=== PATIENT | male | born 2005 | race Caucasian/White ===

== ENCOUNTER 2025-05-25 01:12 | Emergency (ER) | payer SELFPAY ==
--- OUTSIDE RECORDS SUMMARY | 2024-11-05 04:30 | XMS_ITS ---
Author Organization [facility] Address [address] [place] [address] Care Team Providers Care Char Filter Tank Tender Name Role Phone Ronnie Licona Unavailable Unavailable REASON FOR VISIT 7:30 a ING Therapeutic Case Manager [place]P [place] Encounters Encounter Location Date Provider Diagnosis [facility] [address] [place] [address] 11/05/2024 Ronnie Licona Plan Of Treatment No Information Progress Notes * Narinder CUTLER CDOB: [birth year] (19 yo M)Acc No.[id number]:11/05/2024 Patient: Narinder SANTOS Provider: Nabeel Licona PA-C :2005 A ge:19 Y S ex:Male Date:11/05/2024 Address:[address] [place], [place] [id number] Subjective: * Chief Complaints: * 1 . 7:30 a ING Therapeutic Case Manager [place]. * Medical History: Objective: * Vitals: Assessment: Plan: * Treatment: * Billing Information: * Visit Code: * Procedure Codes: * Electronic signature of ESCOBAR Polanco on 05/25/2025 at 03:15 AM CDT Sign off status: Pending * Provider: Nabeel Licona PA-C Date: 11/05/2024 Generated for Nathen diaz/Colleen/Katie on: 0 05/25/2025 03:15 AM CDT
[2025-05-25 01:16] VITALS: BP 140/77; PULSE 81; RESP 18; TEMP 36.9; O2SAT 100
--- NOTE | 2025-05-25 03:12 | PC.NURSE ---
eye kit at bedside.
--- OUTSIDE RECORDS SUMMARY | 2025-05-25 03:15 | XMS_ITS | Clinical Summary ---
Author Organization [email or web address] Address [address] [place] [address] Care Team Providers Care Ferry Engineer Name Role Phone Yusef Benson MD Primary Care Provider [phone] Source Comments [email or web address],non-owned Affiliates and Associated Physician Practices is amultiple site organization consisting of ambulatory clinics and hospital sitesin [place], [place], [place] and [place]. This disclosure is being madepursuant to the Care Everywhere program and may not contain all information available regarding this patient. Last updated 18.[email or web address] Allergies No known active allergies Medications * Be aware that medications may not be up to date on this document. Alwaysverify current medications with the patient. Fluticasone Propionate, Inhal, (FLOVENT IN) Inhale by mouth. Active Albuterol (VENTOLIN IN) Inhale by mouth. Active Montelukast Sodium (SINGULAIR PO) Take by mouth. Active cefdinir (OMNICEF) 125 MG/5ML SUSR suspension Take 10 mL by mouth daily. 100 mL 0 05/21/2010 Active montelukast (SINGULAIR) 4 MG chew tablet Take 1 Tab by mouth every evening. 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 Gender Identity Not on file Sexual Orientation Not on file Last Filed Vital Signs Vital Sign Reading Time Taken Comments Blood Pressure 80/50 05/21/2010 10:43 AM CDT Pulse 66 05/21/2010 10:43 AM CDT Temperature 36.8 C (98.2 F) 05/21/2010 10:43 AM CDT Respiratory Rate 16 05/21/2010 10:4 3 AM CDT Oxygen Saturation - - Inhaled Oxygen Concentration - - Weight 17.7 kg (39 lb 0.3 oz) 0 10:43 AM CDT Height 108.8 cm (3' 6.84) 05/21/2010 1 0:43 AM CDT Hxfvum-dvx-Krtlrd Percentile 34.96% 10:43 AM CDT Growth Chart: CDC (Boys, 2-2 0 Years) Body Mass Index 14.95 05/21/2010 10:43 AM CDT Body Mass Index Percentile 33.27% 05/21 10:43 AM CDT Growth Chart: CDC (Boys, 2-2 0 Years) Plan of Treatment Health Maintenance Due Date Last Done Comments HIV SCREENING 2020 HPV VACCINE (1 - Male 3-dose series) 2020 MENINGOCOCCAL (Group B) VACC INE SHARED DECISION-MAKING (1 of 2 - Standard) 2021 HEPATITIS C SCREENING 05/24/2023 DTAP/TDAP/TD VACCINES (1 - Tdap) 2024 HEPATITIS B VACCINE (1 of 3 - 19+ 3-dose series) 2024 DEPRESSION SCREENING 08/29/2024 COVID-19 VACCINE (1 - 2023-2 5 season) 2025 INFLUENZA VACCINE (#1) 2025 ZOSTER VACCINE (1 of 2) 2055 HIB VACCINE Aged Out No longer eligi ble based on patient's age to complete this topic MENINGOCOCCAL GROUPS A/C/Y/W VACCINE Aged Out No longer eligible b ased on patient's age to complete this topic PNEUMOCOCCAL VACCINE Aged Out No long er eligible based on patient's age to complete this topic Care Teams Ferry Engineer Relationship Specialty Start Date End Date Yusef Besnon MD [address] [place] [address] PCP - General 10/09/09
--- OUTSIDE RECORDS SUMMARY | 2025-05-25 03:15 | XMS_ITS ---
Author Organization Unknown ENCOUNTERS Encounter Performer Location Date Diagnosis Diagnosis Status Emergency [facility] [address] [place] [id number] Pre Admit [facility] [address] [place] [address] [id number] *Note: Encounters from your own facility or health system may be excluded. Allergies, Adverse Reactions, Alerts Allergen Type Severity Identification Date Medications Name Date Quantity Days Supplied GPI Number
--- OUTSIDE RECORDS SUMMARY | 2025-05-25 03:16 | XMS_ITS | Patient Health Record ---
Author Organization [employer] [facility] Address [address] [place] [id number] Care Team Providers Care Boiler Shop Supervisor Name Role Phone Ronnie Licona Unavailable Unavailable Reason For Referral No Information Plan Of Treatment No Information Insurance Providers Payer Name Payer Address Payer Phone Subscriber Number Group Number Insured Name Patient Relationship to Insured Coverage Start Date Coverage End Date [facility] price Narinder Cutler Self - patient is the insured
--- NOTE | 2025-05-25 04:04 | ED_ITS ---
HPI - Eye Problem General Chief complaint: Eye Problems Stated complaint: foreign body eye Time Seen by Provider: 05/25/25 02:59 History of Present Illness HPI Narrative: Patient is a 19-year-old male who presents to the emergency department this evening complaining of foreign body to his right eye. Patient states that he has felt something in his eye for the past week since Tuesday. He purchase wjqo-sah-pfgxqon lubricant eyedrops to see if he can flush it out with no relief of symptoms. Patient is unsure of what could have gone into his eye. Otherwise denies any symptoms or concerns. Related Data Allergies Allergy/AdvReac Type Severity Reaction Status Date / Time No Known Allergies Verified 10/06/10 07:27 Review of Systems Review of Systems: All systems are reviewed and are negative unless stated otherwise in the HPI. Exam Narrative: General: Alert, awake, afebrile, in no acute distress. HEENT: PERRL, no rhinorrhea, no post nasal drip, oropharynx clear, corneal foreign body noted along the center of the patient's visual field, fluorescent uptake noted to the area of the foreign body otherwise no evidence of corneal abrasion, otherwise remainder of the ophthalmology examination is unremarkable. Neck: Trachea midline, no JVD, no lymphadenopathy. Cardiovascular: Regular rate and rhythm, no murmurs, rubs or gallops, no peripheral edema. Respiratory: Clear to auscultation bilaterally, no tachypnea, no wheezing, no rhonchi, no rubs, no respiratory distress. Abdomen: Soft, nontender, nondistended, no rebound, no guarding, no peritoneal signs. Musculoskeletal: No joint swelling or deformity, normal muscle tone. Skin: No rashes or petechia, no signs of infection. Psychiatric: Alert and oriented, normal behavior and judgment for situation. Neurological: Alert and oriented to person, place, and time. Follows all commands. No focal deficits, speech is clear and fluent. Course Vital Signs Vital signs: Vital Signs Temperature 98.5 F 05/25/25 01:16 Pulse Rate 81 05/25/25 01:16 Respiratory Rate 18 05/25/25 01:16 Blood Pressure 140/77 05/25/25 01:16 Pulse Oximetry 100 05/25/25 01:16 Oxygen Delivery Room Air 05/25/25 01:16 Temperature 98.5 F 05/25/25 01:16 Pulse Rate 81 05/25/25 01:16 Respiratory Rate 18 05/25/25 01:16 Blood Pressure 140/77 05/25/25 01:16 Pulse Oximetry 100 05/25/25 01:16 Oxygen Delivery Room Air 05/25/25 01:16 Procedures FB Removal Eye Foreign Body #1: Foreign Body Removal Date: 05/25/25 Foreign Body Removal Time: 04:11 Time Out performed: Yes Location: eye (R) Topical anesthetic used: proparacaine Evidence of corneal penetration: Yes Technique: irrigation and cotton tip swab Procedure performed under: direct visualization with magnification Post-procedure medication: ophthalmic antibiotic Patient tolerated procedure: well and no complications Complications: incomplete foreign body removal MDM - Eye Problem MDM Narrative Medical decision making narrative: The patient was evaluated by myself in the emergency department. History is obtained from patient who is an independent historian and physical exam was performed. External medical records were reviewed at this time. This time corneal foreign body was removed as detailed under procedural note. Patient was informed that it is unclear if the full foreign body was removed giving that it has been embedded in his cornea for the past week. Recommended follow-up with ophthalmology within the next 24-48 hours and patient is in agreement. Provided with antibiotic eyedrops. Differential diagnosis considerations include corneal abrasion, corneal foreign body. Comorbidities impacting this visit include none. I have evaluated and discussed social determinants of health with the patient that could potentially impact subsequent diagnosis and treatment plans. On repeat assessment of the patient, reevaluation revealed that the patient is doing well and is in no acute distress. Patient symptoms have improved since he arrived to our emergency department. Repeat vital signs were all reviewed and noted to be stable. Differential diagnosis and treatment plan were discussed with the patient at bedside. Patient agrees with discussion and after shared medical decision making agrees with discharge. All questions were answered to the patient's satisfaction. Patient will follow up with the [facility] within the next 24-48 hours. Instructed to use the antibiotics eye drops that was provided to him in the emergency department as instructed. Patient was provided with strict return precautions and instructed to return to the emergency department if any new or worsening symptoms develop. The patient was discharged in stable condition. Discharge Plan Discharge Clinical Impression: Corneal foreign body, Corneal abrasion Patient Disposition: Home Condition: Improved Instructions: Antibiotic Form, Corneal Abrasion (DC), Eye Foreign Body (ED) Additional Instructions: Please follow-up with the [facility] within the next 24-48 hours. Use the prescribed antibiotic eyedrops as instructed. Return to ED if any new or worsening symptoms develop. Patient Language: Kiswahili Follow-up/Referrals: Rachel Yang [Outside] - 2 Days [facility] Whitney Maher [Outside] - 2 Days Yusef Benson MD [Primary Care Provider, [facility]] Time of Disposition: 04:05
[2025-05-25] MEDS: OFLOXACIN 0.3% OPHTH SOLN 5 ML BTL 1 DROP RIGHT EYE (04:16)
[2025-05-25] MEDS: FLUORESCEIN SOD 1 MG/STRIP AFFCTD EYE (04:16)
[2025-05-25] MEDS: TETRACAINE HCL 0.5% OPHTH SOLN 4 ML BTL AFFCTD EYE (04:16)
== END 2025-05-25 04:18 | disposition home or self-care (01) ==
PROVIDERS: Emergency Provider Emergency Medicine; PCP Family Medicine
DX: T15.01XA Foreign body in cornea, right eye, initial encounter (principal); X58.XXXA Exposure to other specified factors, initial encounter
CPT/HCPCS: 65205; 99283; A9270